=== PATIENT | female | born 1995 | race Two or more races ===

== ENCOUNTER 2020-02-19 16:02 | Emergency (ER) | payer MEDICAID ==
[~2020-02-19] VITALS: Ht 170.2 cm; Wt 127.0 kg
[2020-02-19 16:13] VITALS: BP 133/76
== END 2020-02-19 16:54 | disposition home or self-care (01) ==
LOC: ER 16:02
DX: O9A.212 Injury, poisoning and certain other consequences of external causes complicating pregnancy, second trimester (principal); T14.8XXA Other injury of unspecified body region, initial encounter; O99.512 Diseases of the respiratory system complicating pregnancy, second trimester; J45.909 Unspecified asthma, uncomplicated; Z3A.18 18 weeks gestation of pregnancy; V89.2XXA Person injured in unspecified motor-vehicle accident, traffic, initial encounter; Y93.I9 Activity, other involving external motion; Y92.410 Unspecified street and highway as the place of occurrence of the external cause; Y99.8 Other external cause status